=== PATIENT | male | born 1975 | race Caucasian/White ===

== ENCOUNTER 2024-08-08 10:48 | Emergency (ER) | payer OTHER, SELFPAY ==
[2024-08-08 10:58] VITALS: BP 150/99
--- NOTE | 2024-08-08 11:00 | ED.PDOC.TRB ---
ED Provider Triage
-
Patient seen by provider in Triage?: Seen in Triage
Initial rapid assessment performed in triage to facilitate ED workup
48-year-old male presenting with COVID-19 complaining of general fatigue, severe headache, chest and nasal congestion. He is concerned his blood pressure has been elevated and his blood pressure monitor has been detecting 'heart arrhythmia'.
Denies chest pain or shortness of breath at this time
GEN: Well appearing, NAD, WDWN
HEENT: Oral mucosa moist, no scleral icterus
Cardiac: Regular rate
Lung: No respiratory distress, no tachypnea
MSK: No gross deformity or injuries
Skin: Good color, no pallor or jaundice, no rashes
Neuro: AO x3, moves all extremities freely
Psych: Calm, cooperative
Assessment/plan: COVID-19. Likely symptoms are attributable to COVID, check basic labs and chest x-ray
[2024-08-08 11:19] LABS: % Basophils 0.7 % (0-2); % Eosinophils 3.3 % (0-6); % Lymphocytes 30.8 % (20.5-51.1); % Neutrophils 55.2 % (42.2-75.2); Absolute Eosinophils 0.2 10^3/uL (0-0.7); Absolute Immature Granulocytes 0.1 10^3/uL (0-0.05); Absolute Lymphocytes 1.4 10^3/uL (1.2-3.4); Absolute Monocytes 0.4 10^3/uL (0.1-0.6); Absolute Neutrophils 2.5 10^3/uL (1.4-6.5); Hematocrit 42.9 % (39.0-52.0); Hemoglobin 14.4 g/dL (13.0-18.0); Mean Corp Hgb Conc. 33.6 g/dL (33.0-37.0); Mean Corpuscular Hgb 26.6 pg (27.0-31.0); Mean Corpuscular Volume 79.2 fL (80.0-94.0); Mean Platelet Volume 10.7 fL (7.4-10.4); Nucleated Red Blood Cells % 0 % (-); Platelet Count 219 10^3/uL (130-400); Red Blood Cell Count 5.42 10^6/uL (4.70-6.10); Red Cell Dist. Width 13.2 % (11.5-14.5); White Blood Cell Count 4.5 10^3/uL (4.8-10.8)
[2024-08-08 11:40] LABS: ALT (SGPT) 29 U/L (0-50); AST (SGOT) 24 U/L (17-59); Albumin 4.5 g/dl (3.5-5.0); Alkaline Phosphatase 92 U/L (38-126); Blood Urea Nitrogen 19 mg/dl (9-20); Calcium 9.6 mg/dl (8.4-10.2); Carbon Dioxide 26 mmol/L (22-30); Chloride 102 mmol/L (98-107); Glucose 104 mg/dl (70-99); Potassium 4.4 mmol/L (3.5-5.1); Sodium 139 mmol/L (135-145); Total Bilirubin 0.6 mg/dl (0.2-1.3); eGFR > 60.00
--- NOTE | 2024-08-08 13:17 | ED.GENMED ---
History of Present Illness
General
Chief Complaint: Heart Rate Problem
Time Seen by Provider: 08/08/24 13:16
History of Present Illness
History of Present Illness:
48-year-old male presenting with COVID-19 complaining of general fatigue, severe headache, chest and nasal congestion. He is concerned his blood pressure has been elevated and his blood pressure monitor has been detecting 'heart arrhythmia'.
Denies chest pain or shortness of breath at this time
Review of Systems
Review of Systems
Allergies reviewed?: Yes
All Other Systems: ROS reviewed and negative except as documented in HPI and ROS
Phy Exam
Physical Exam
Physical Exam:
GEN: Well appearing, NAD, WDWN
HEENT: Oral mucosa moist, no scleral icterus
Cardiac: Regular rate and rhythm, no murmurs
Lung: No respiratory distress, no tachypnea, lungs clear to auscultation
MSK: No gross deformity or injuries
Skin: Good color, no pallor or jaundice, no rashes
Neuro: AO x3, moves all extremities freely
Psych: Calm, cooperative
Course
Orders/Labs/Results
Orders:
Orders
08/08/24 10:51
Electrocardiogram (*1) Urgent
Reason for Study: Chest Pain
EKG- Treatment ONCE
EKG- Treatment ONCE
08/08/24 10:58
CR Chest - 2 Views Urgent
Comment:
Reason For Exam: COVID
08/08/24 11:09
Complete Blood Count/With Diff Urgent
Comprehensive Metabolic Panel Urgent
Abnormal Lab Results
08/08/24
11:09
WBC 4.5 L 10^3/uL
(4.8-10.8)
MCV 79.2 L fL
(80.0-94.0)
MCH 26.6 L pg
(27.0-31.0)
MPV 10.7 H fL
(7.4-10.4)
Abs Immat Gran (auto) 0.1 H 10^3/uL
(0-0.05)
Immature Gran % 2.0 H %
(0-0.5)
Glucose 104 H mg/dl
(70-99)
08/08/24 11:09
08/08/24 11:09
Vital Signs
Initial and Last Documented VS:
Initial Vital Signs
Temp Pulse Resp BP Pulse Ox
98.7 F 78 20 150/99 99
08/08/24 10:58 08/08/24 10:58 08/08/24 10:58 08/08/24 10:58 08/08/24 10:58
Last Documented Vital Signs
Temp Pulse Resp BP Pulse Ox
98.7 F 78 20 150/99 99
08/08/24 10:58 08/08/24 10:58 08/08/24 10:58 08/08/24 10:58 08/08/24 10:58
MDM/Problems Addressed
MDM/Problems Addressed:
Patient's EKG is nonischemic and chest x-ray is clear. Labs are reassuring. No evidence of cardiac arrhythmia. He has no symptoms concerning for pericarditis or myocarditis in the setting of COVID-19. He is already on antivirals. Discussed
further supportive care, suitable for discharge to home
*Critical Care Note
Total Time (30-74mins, 75-104mins- exclusive of procedures): Not Applicable
ED Attending Note
-
Portions of this chart may have been created with voice recognition software.� Occasional wrong word or��sound alike� substitutions may have occurred due to the inherent limitations of voice recognition software.
Discharge Plan
Departure
Patient Disposition: Home (Routine Discharge)
Date of Disposition: 08/08/24
Time of Disposition: 13:18
Patient with high blood pressure during this ER visit?: No
Discharge Problem:
COVID-19
Instructions: COVID-19 ED
Prescriptions:
No Action
methylprednisolone [Medrol (Farhad)] 4 mg tablets,dose pack
See Rx Instructions .ROUTE .COMPLEX Qty: 21 0RF
Rx Instructions:
orally per package directions
Activity Restrictions/Additional Instructions:
Return if you develop shortness of breath
Interventions
Interventions:
*Risk Screen - Suicide Last Done: 08/08/24 10:58
*General Assessment Last Done: 08/08/24 10:58
*Neglect/Abuse Screening Last Done: 08/08/24 10:58
*Nursing Disposition Last Done: 08/08/24 13:53
ED- Cardiac Assessment Last Done: 08/08/24 13:52
ED- Pulmonary Assessment Last Done: 08/08/24 13:52
Discharge Date and Time
Discharge Date/Time: 08/08/24 13:54
Print Language: FRENCH
== END 2024-08-08 13:54 | disposition home or self-care (01) ==
LOC: EMR 10:48
PROVIDERS: Physician Assistant; EMERGENCY PHYSICIAN Emergency Medicine; FAMILY PHYSICIAN Family Medicine
DX: U07.1 COVID-19 (principal); R51.9 Headache, unspecified; I49.9 Cardiac arrhythmia, unspecified; Z88.2 Allergy status to sulfonamides
CPT/HCPCS: 99283; 71046; 80053; 85025; 93005